=== PATIENT | female | born 1940 | race Caucasian/White ===

== ENCOUNTER 2018-11-12 00:30 | Inpatient (IN) | payer MEDICARE, OTHER ==
[~2018-11-12] VITALS: Ht 142.2 cm; Wt 61.5 kg
[2018-11-12] MEDS ORDERED: MAGNESIUM HYDROXIDE 2,400 MG/30 ML ORAL.SUSP. PO PRN (01:15)
[2018-11-12] MEDS ORDERED: MAG HYDROX/AL HYDROX/SIMETH 30 ML ORAL.SUSP PO PRN (01:15)
[2018-11-12] MEDS ORDERED: QUET25TA5 PO ×3 (01:28)
[2018-11-12] MEDS ORDERED: ACET325T9 PO (01:28)
[2018-11-12] MEDS ORDERED: PRAM0.255 PO (01:28)
[2018-11-12] MEDS ORDERED: DIVA500T17 PO (01:28)
[2018-11-12] MEDS ORDERED: PRIM250T28 PO (01:28)
[2018-11-12] MEDS ORDERED: QUEtiapine 25 MG TABLET. PO PRN (01:30)
[2018-11-12] MEDS ORDERED: ACETAMINOPHEN 325 MG TABLET PO PRN (01:45)
[2018-11-12] MEDS ORDERED: Influenza vaccine per PROTOCOL. MC PRN (02:45)
[2018-11-12 05:51] VITALS: BP 102/64
[2018-11-12 07:09] LABS: BASO % 0 % (0-3); EOS # 0.4 x10^3/uL (0.0-0.7); EOS % 4 % (0-3); HEMATOCRIT 38.6 % (36.0-47.0); HEMOGLOBIN 12.9 g/dL (12.0-15.5); LYMPH # 1.5 x10^3/uL (1.0-4.8); LYMPH % 18 % (24-48); MEAN CORPUSCULAR HEMOGLOBIN 32 pg (25-35); MEAN CORPUSCULAR HGB CONC 33 g/dL (31-37); MEAN CORPUSCULAR VOLUME 97 fL (79-100); MONO # 0.8 x10^3/uL (0.0-1.1); MONO % 9 % (0-9); NEUT # 5.7 x10^3uL (1.8-7.7); NEUT % 69 % (31-73); PLATELET COUNT 172 x10^3/uL (140-400); RED BLOOD COUNT 3.98 x10^6/uL (3.50-5.40); RED CELL DISTRIBUTION WIDTH 13.1 % (11.5-14.5); WHITE BLOOD COUNT 8.3 x10^3/uL (4.0-11.0)
[2018-11-12 07:11] LABS: ALBUMIN 2.8 g/dL (3.4-5.0); ALBUMIN/GLOBULIN RATIO 0.8 (1.0-1.7); CALCIUM 8.4 mg/dL (8.5-10.1); CREATININE 0.6 mg/dL (0.6-1.0); GFR 96.9; MAGNESIUM 2.2 mg/dL (1.8-2.4); TOTAL BILIRUBIN 0.4 mg/dL (0.2-1.0); TOTAL PROTEIN 6.5 g/dL (6.4-8.2)
[2018-11-12 07:19] LABS: VAL ACID 25 mcg/mL (50-100)
[2018-11-12] MEDS ORDERED: FLU VAX QS 2019-20 (36MOS+)/PF 0.5 ML SYRINGE. VAX IM ONE (09:00)
[2018-11-12] MEDS: DIVALPROEX ER 500 MG TAB.ER.24H PO SCH ×2 (09:05→19:39)
[2018-11-12] MEDS: QUEtiapine 25 MG TABLET. PO SCH ×2 (09:05→20:35)
[2018-11-12] MEDS: PRAMIPEXOLE 0.5 MG TABLET. PO SCH ×2 (09:05→19:39)
[2018-11-12 09:07] VITALS: BP 126/70
[2018-11-12] MEDS: PRIMIDONE 250 MG TABLET PO SCH ×2 (09:07→19:39)
[2018-11-12] MEDS: ACETAMINOPHEN 325 MG TABLET PO PRN ×2 (15:25→20:36)
[2018-11-12 16:30] VITALS: BP 130/75
[2018-11-12] MEDS: DIVALPROEX 125 MG CAP.SPRINK PO SCH (21:00)
[2018-11-12] MEDS ORDERED: DIVALPROEX 125 MG CAP.SPRINK PO SCH (21:00)
--- NOTE | 2018-11-12 22:13 | PDOC ---
Exam Note: Pancho Note: Please also refer to the separate dictated note~for this date of service dictated separately. Discussed the patient with Nursing staff reviewed the chart.~Reviewed interim history and current functioning. Reviewed vital signs,~Labs/ Radiology~and current medications noted below. Continue current treatment with the changes noted in the dictated addendum note Assessment: Vital Signs/I&O: Vital Signs Date Time Temp Pulse Resp B/P (MAP) Pulse Ox O2 Delivery O2 Flow Rate FiO2 11/12/18 16:30 98.4 82 18 130/75 (93) 96 I & O 11/11/18 11/11/18 11/12/18 15:00 23:00 07:00 Intake Total 0 ml Balance 0 ml Labs: Laboratory Tests Test 11/12/18 06:21 White Blood Count 8.3 x10^3/uL (4.0-11.0) Red Blood Count 3.98 x10^6/uL (3.50-5.40) Hemoglobin 12.9 g/dL (12.0-15.5) Hematocrit 38.6 % (36.0-47.0) Mean Corpuscular Volume 97 fL (79-100) Mean Corpuscular Hemoglobin 32 pg (25-35) Mean Corpuscular Hemoglobin Concent 33 g/dL (31-37) Red Cell Distribution Width 13.1 % (11.5-14.5) Platelet Count 172 x10^3/uL (140-400) Neutrophils (%) (Auto) 69 % (31-73) Lymphocytes (%) (Auto) 18 % (24-48) L Monocytes (%) (Auto) 9 % (0-9) Eosinophils (%) (Auto) 4 % (0-3) H Basophils (%) (Auto) 0 % (0-3) Neutrophils # (Auto) 5.7 x10^3uL (1.8-7.7) Lymphocytes # (Auto) 1.5 x10^3/uL (1.0-4.8) Monocytes # (Auto) 0.8 x10^3/uL (0.0-1.1) Eosinophils # (Auto) 0.4 x10^3/uL (0.0-0.7) Basophils # (Auto) 0.0 x10^3/uL (0.0-0.2) Sodium Level 141 mmol/L (136-145) Potassium Level 4.0 mmol/L (3.5-5.1) Chloride Level 105 mmol/L (98-107) Carbon Dioxide Level 28 mmol/L (21-32) Anion Gap 8 (6-14) Blood Urea Nitrogen 10 mg/dL (7-20) Creatinine 0.6 mg/dL (0.6-1.0) Estimated GFR (Cockcroft-Gault) 96.9 BUN/Creatinine Ratio 17 (6-20) Glucose Level 94 mg/dL (70-99) Calcium Level 8.4 mg/dL (8.5-10.1) L Magnesium Level 2.2 mg/dL (1.8-2.4) Iron Level 53 ug/dL (50-170) Total Iron Binding Capacity 198 ug/dL (250-450) L Iron Saturation 27 % (15-34) Total Bilirubin 0.4 mg/dL (0.2-1.0) Aspartate Amino Transferase (AST) 30 U/L (15-37) Alanine Aminotransferase (ALT) 23 U/L (14-59) Alkaline Phosphatase 55 U/L (46-116) Total Protein 6.5 g/dL (6.4-8.2) Albumin 2.8 g/dL (3.4-5.0) L Albumin/Globulin Ratio 0.8 (1.0-1.7) L Triglycerides Level 93 mg/dL (0-150) Cholesterol Level 184 mg/dL (0-200) LDL Cholesterol, Calculated 114 mg/dL (0-100) H VLDL Cholesterol, Calculated 18 mg/dL (0-40) Non-HDL Cholesterol Calculated 132 mg/dL (0-129) H HDL Cholesterol 52 mg/dL (40-60) Cholesterol/HDL Ratio 3.0 25-Hydroxy Vitamin D Total 12.4 ng/mL (30-100) L Valproic Acid Level 25 mcg/mL (50-100) L Valproic Acid Last Dose Date 11/10/18 Valproic Acid Last Dose Time 0900 Treponema pallidum Antibody Nonreactive (Nonreactive) Current Medications: Meds: Current Medications Medications (Trade) Dose Ordered Sig/Martin Route PRN Reason Start Time Stop Time Status Last Admin Dose Admin Acetaminophen (Tylenol) 650 mg PRN Q6HRS PRN PO PAIN / TEMP 10/1/19 01:15 11/12/18 20:36 Divalproex Sodium (Depakote Er) 500 mg BID PO 11/12/18 09:00 11/12/18 21:16 DC 11/12/18 09:05 Quetiapine Fumarate (SEROquel) 25 mg DAILY PO 11/12/18 09:00 11/12/18 09:05 Quetiapine Fumarate (SEROquel) 25 mg QHS PO 11/12/18 21:00 11/12/18 20:35 Pramipexole Dihydrochloride (miraPEX) 1 mg BID PO 11/12/18 09:00 11/12/18 19:39 Primidone (Mysoline) 250 mg BID PO 11/12/18 09:00 11/12/18 19:39 Influenza Virus Vaccine Quadrival (Afluria Quad 2019-20 (3yr Up) Syringe) 0.5 ml ONCE ONCE VAX IM 11/12/18 09:00 11/12/18 09:01 DC 11/12/18 09:07 Olanzapine (ZyPREXA ZYDIS) 2.5 mg PRN Q2HR PRN PO PSYCHOSIS 11/12/18 03:15 11/12/18 20:36 I have reviewed the current psychotropics carefully including drug interactions. Risk benefit ratio favors no change other than as noted in my dictated progress note. Diagnosis: Problems: (1) Anxiety disorder (2) Mild cognitive impairment (3) Major depressive disorder, recurrent episode NORIS ORTIZ MD Nov 12, 2018 22:12
[2018-11-13 00:07] LABS: HEMOGLOBIN A1C 5.7 % (4.8-5.6)
[2018-11-13 05:52] VITALS: BP 132/76
[2018-11-13] MEDS: QUEtiapine 25 MG TABLET. PO SCH ×2 (08:35→22:28)
[2018-11-13] MEDS: PRIMIDONE 250 MG TABLET PO SCH ×3 (08:35→22:28)
[2018-11-13] MEDS: PRAMIPEXOLE 0.5 MG TABLET. PO SCH ×3 (08:35→22:28)
[2018-11-13] MEDS: DIVALPROEX 125 MG CAP.SPRINK PO SCH ×3 (08:36→22:28)
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
[2018-11-13 16:04] VITALS: BP 131/78
--- NOTE | 2018-11-13 21:28 | PDOC ---
Exam Note: Pancho Note: Please also refer to the separate dictated note~for this date of service dictated separately.~Patient seen individually. Discussed the patient with Nursing staff reviewed the chart.~Reviewed interim history and current functioning. Reviewed vital signs,~Labs/ Radiology~and current medications noted below. Continue current treatment with the changes noted in the dictated addendum note Assessment: Vital Signs/I&O: Vital Signs Date Time Temp Pulse Resp B/P (MAP) Pulse Ox O2 Delivery O2 Flow Rate FiO2 11/13/18 16:04 98.6 70 16 131/78 (95) 95 I & O 11/12/18 11/12/18 11/13/18 14:59 22:59 06:59 Intake Total 600 ml 240 ml 0 ml Balance 600 ml 240 ml 0 ml Current Medications: I have reviewed the current psychotropics carefully including drug interactions. Risk benefit ratio favors no change other than as noted in my dictated progress note. Diagnosis: Problems: (1) Anxiety disorder (2) Mild cognitive impairment (3) Major depressive disorder, recurrent episode NORIS ORTIZ MD Nov 13, 2018 21:28
[2018-11-14 05:41] VITALS: BP 146/76
[2018-11-14 06:59] LABS: VAL ACID 25 mcg/mL (50-100)
[2018-11-14] MEDS: PRAMIPEXOLE 0.5 MG TABLET. PO SCH ×2 (07:36→20:28)
[2018-11-14] MEDS: QUEtiapine 25 MG TABLET. PO SCH ×2 (07:36→20:27)
[2018-11-14] MEDS: DIVALPROEX 125 MG CAP.SPRINK PO SCH ×2 (07:36→20:27)
[2018-11-14] MEDS: PRIMIDONE 250 MG TABLET PO SCH ×2 (07:36→20:28)
[2018-11-14] MEDS: CALCIUM CARB/VIT D3 500/200 TABLET PO SCH ×2 (07:38→17:09)
[2018-11-14] MEDS: SERTRALINE 50 MG TABLET. PO SCH (07:38)
[2018-11-14 16:55] VITALS: BP 136/74
--- NOTE | 2018-11-14 19:33 | PN ---
DATE: SUBJECTIVE: A 78-year-old female seen in Behavioral Unit. The patient was admitted with severe depression, refusing medications and care with increased agitation and behavioral outburst as well, very antagonistic towards the nurses. The patient has apparently recent surgery on her left foot, had a bunion surgery and is wrapped quite securely. The patient otherwise has basically allergy to ASPIRIN. Other medications were reviewed as well as with medical history of Parkinson disease, short-term memory deficit, agitation and some depression, little bit of paranoia ____ as well. PHYSICAL EXAMINATION: GENERAL: This is a white female, is noted somewhat agitated. The patient is alert, is noted at times seems to be back and forth between a very calm individual to one of a very aggressive and agitated individual toward the nursing staff. VITAL SIGNS: Blood pressure 130/76, respirations 18, pulse 95, afebrile. LUNGS: Diminished, but clear. CARDIOVASCULAR: Steady. EXTREMITIES: The patient's leg was wrapped well and can be undressed from her previous bunion, but she said it was feeling somewhat better. Otherwise, the patient had no other complaints except she did not [facility] it [facility], but seems to be pretty much discussed it with ____. She is somewhat low on her vitamin D level and should probably be increased on that. Her A1c was 5.7. IMPRESSION: Agitation, depression, MAD as well as post-bunionectomy. She also was noted to have some conjunctivitis of the left eye and she also has low vitamin D level, which will need to be adjusted as well. No doubt to help her with her healing process of her bunion. HILLARY ROPER MD DR: HOUSTON/carey JOB#: [id number] / [id number]
--- NOTE | 2018-11-14 21:47 | PDOC ---
Exam Note: Pancho Note: Please also refer to the separate dictated note~for this date of service dictated separately.~Patient seen individually. Discussed the patient with Nursing staff reviewed the chart.~Reviewed interim history and current functioning. Reviewed vital signs,~Labs/ Radiology~and current medications noted below. Continue current treatment with the changes noted in the dictated addendum note Assessment: Vital Signs/I&O: Vital Signs Date Time Temp Pulse Resp B/P (MAP) Pulse Ox O2 Delivery O2 Flow Rate FiO2 11/14/18 16:55 98.8 76 16 136/74 (94) 95 I & O 11/13/18 11/13/18 11/14/18 15:00 23:00 07:00 Intake Total 240 ml Balance 240 ml Labs: Laboratory Tests Test 11/14/18 06:17 Valproic Acid Level 25 mcg/mL (50-100) L Valproic Acid Last Dose Date 11/13/18 Valproic Acid Last Dose Time 2100 Current Medications: Meds: Current Medications Medications (Trade) Dose Ordered Sig/Martin Route PRN Reason Start Time Stop Time Status Last Admin Dose Admin Sertraline HCl (Zoloft) 50 mg DAILY PO 11/14/18 09:00 11/14/18 07:38 Calcium/Vitamin D (Oscal D 500mg/ 200uts) 1 tab BIDWMEALS PO 11/14/18 08:00 11/14/18 17:09 I have reviewed the current psychotropics carefully including drug interactions. Risk benefit ratio favors no change other than as noted in my dictated progress note. Diagnosis: Problems: (1) Anxiety disorder (2) Mild cognitive impairment (3) Major depressive disorder, recurrent episode NORIS ORTIZ MD Nov 14, 2018 21:47
[2018-11-15] MEDS: ACETAMINOPHEN 325 MG TABLET PO PRN (04:15)
[2018-11-15 06:02] VITALS: BP 101/61
[2018-11-15] MEDS: PRIMIDONE 250 MG TABLET PO SCH ×2 (08:26→20:43)
[2018-11-15] MEDS: CALCIUM CARB/VIT D3 500/200 TABLET PO SCH ×2 (08:26→16:08)
[2018-11-15] MEDS: PRAMIPEXOLE 0.5 MG TABLET. PO SCH ×2 (08:26→20:43)
[2018-11-15] MEDS: DIVALPROEX 125 MG CAP.SPRINK PO SCH ×2 (08:26→20:44)
[2018-11-15] MEDS: QUEtiapine 25 MG TABLET. PO SCH ×2 (08:27→20:44)
[2018-11-15] MEDS: SERTRALINE 50 MG TABLET. PO SCH (08:27)
[2018-11-15 16:21] VITALS: BP 138/65
--- NOTE | 2018-11-15 17:44 | EKG ---
[address] [address] Test Date: 2018-11-15 Test Time: 15:42:28 Pat Name: PAM AGUILERA Department: Room: [address] [place] [address] Gender: F Electro Mechanic: BASIL : 1940 Requested By: NORIS ORTIZ Order Number: [id number] Reading MD: Colten Sexton MD Measurements Intervals [place] Rate: 69 P: 39 IL: 142 QRS: 71 QRSD: 80 T: 24 QT: 382 QTc: 411 Interpretive Statements SINUS RHYTHM NON-SPECIFIC ST/T CHANGES CONSIDER ANTERIOR ISCHEMIA Electronically Signed On 11-26-2018 9:42:22 CDT by Colten Sexton MD
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
--- NOTE | 2018-11-15 20:23 | PN ---
DATE: 11/14/2018 PSYCHIATRIC PROGRESS NOTE This late entry 11/14/2018 covers elements not covered in my initial note. SUBJECTIVE: I met with the patient in the evening and staffed at a treatment team meeting with the entire team in the morning and the patient's , Hira attended the treatment team meeting. Reviewed her history at length including short-term memory deficits, worsening over the past couple of years, but her said her premorbid personality was quite irritable, anxious, worse since the memory has worsened. Reportedly, she has had some movement problems and we will consult Dr. Winter to see if she has Parkinson's. Sleeping 3-4 hours. Appetite 25-50%, refused medications at times agitated. REVIEW OF SYSTEMS: Ambulation impaired, in wheelchair. No CV, , pulmonary, eye system symptoms on review. MENTAL STATUS EXAM: Oriented to herself and situation. Speech has some latency, coherent. Abstraction fair, computation impaired, language function intact. Mood and affect is depressed. Short term memory is impaired. LABORATORY DATA: Reviewed. IMPRESSION: Major depressive disorder, recurrent, mild cognitive impairment; rule out psychotic features. Rest unchanged. PLAN: Continue current psychotropics. She remains on Zoloft 50 mg a day, Seroquel, Depakote. Repeat valproic acid level. Adjust further as clinically indicated. MAN Bola ORTIZ MD DR: JULIO CÉSAR/carey JOB#: [id number] / [id number]
--- NOTE | 2018-11-15 21:36 | PDOC ---
Exam Note: Pancho Note: Please also refer to the separate dictated note~for this date of service dictated separately.~Patient seen individually. Discussed the patient with Nursing staff reviewed the chart.~Reviewed interim history and current functioning. Reviewed vital signs,~Labs/ Radiology~and current medications noted below. Continue current treatment with the changes noted in the dictated addendum note Assessment: Vital Signs/I&O: Vital Signs Date Time Temp Pulse Resp B/P (MAP) Pulse Ox O2 Delivery O2 Flow Rate FiO2 11/15/18 16:21 98.5 65 16 138/65 (89) 98 I & O 11/14/18 11/14/18 11/15/18 15:00 23:00 07:00 Intake Total 720 ml 120 ml Balance 720 ml 120 ml Current Medications: I have reviewed the current psychotropics carefully including drug interactions. Risk benefit ratio favors no change other than as noted in my dictated progress note. Diagnosis: Problems: (1) Anxiety disorder (2) Mild cognitive impairment (3) Major depressive disorder, recurrent episode NORIS ORTIZ MD Nov 15, 2018 21:36
[2018-11-16 05:47] VITALS: BP 135/82
[2018-11-16] MEDS: PRAMIPEXOLE 0.5 MG TABLET. PO SCH ×2 (08:15→19:52)
[2018-11-16] MEDS: CALCIUM CARB/VIT D3 500/200 TABLET PO SCH ×2 (08:15→17:06)
[2018-11-16] MEDS: DIVALPROEX 125 MG CAP.SPRINK PO SCH ×2 (08:15→19:52)
[2018-11-16] MEDS: SERTRALINE 50 MG TABLET. PO SCH (08:16)
[2018-11-16] MEDS: PRIMIDONE 250 MG TABLET PO SCH ×2 (08:16→19:52)
[2018-11-16] MEDS: QUEtiapine 25 MG TABLET. PO SCH ×2 (08:16→19:52)
[2018-11-16 15:43] VITALS: BP 127/74
--- NOTE | 2018-11-16 20:12 | PN ---
DATE: 11/15/2018 PSYCHIATRIC PROGRESS NOTE This late entry of 11/15/2018 covers elements not covered in my initial note. SUBJECTIVE: I met with the patient in the evening. Per JUANCARLOS Quiros, the patient slept 5-3/4 hours previous night. She did well during the day, took her medications, and received p.r.n. Tylenol x 1. Her dressing to the lower extremity was changed. REVIEW OF SYSTEMS: Ambulation impaired, in wheelchair, and some tiredness. No CV, , pulmonary, eye, ENT system symptoms on review. MENTAL STATUS EXAM: Oriented to herself and situation. Speech has some latency, often responses monosyllabic. Abstraction fair, computation impaired, language function intact. Mood and affect withdrawn. Short-term memory is impaired, still depressed. No suicidal or homicidal ideation. LABORATORY DATA: Reviewed. IMPRESSION: Unchanged from initial note. PLAN: No change from initial note. NORIS ORTIZ MD DR: JULIO CÉSAR/carey JOB#: [id number] / [id number]
--- NOTE | 2018-11-16 21:52 | PDOC ---
Exam Note: Pancho Note: Please also refer to the separate dictated note~for this date of service dictated separately.~Patient seen individually. Discussed the patient with Nursing staff reviewed the chart.~Reviewed interim history and current functioning. Reviewed vital signs,~Labs/ Radiology~and current medications noted below. Continue current treatment with the changes noted in the dictated addendum note Assessment: Vital Signs/I&O: Vital Signs Date Time Temp Pulse Resp B/P (MAP) Pulse Ox O2 Delivery O2 Flow Rate FiO2 11/16/18 15:43 97.2 68 20 127/74 (91) 97 Room Air I & O 11/15/18 11/15/18 11/16/18 15:00 23:00 07:00 Intake Total 600 ml 360 ml Balance 600 ml 360 ml Current Medications: I have reviewed the current psychotropics carefully including drug interactions. Risk benefit ratio favors no change other than as noted in my dictated progress note. Diagnosis: Problems: (1) Anxiety disorder (2) Mild cognitive impairment (3) Major depressive disorder, recurrent episode NORIS ORTIZ MD Nov 16, 2018 21:52
[2018-11-17] MEDS: ACETAMINOPHEN 325 MG TABLET PO PRN (06:17)
[2018-11-17 06:22] VITALS: BP 124/69
[2018-11-17] MEDS: CALCIUM CARB/VIT D3 500/200 TABLET PO SCH ×3 (08:00→15:06)
[2018-11-17] MEDS: PRIMIDONE 250 MG TABLET PO SCH ×3 (08:13→19:58)
[2018-11-17] MEDS: PRAMIPEXOLE 0.5 MG TABLET. PO SCH ×3 (08:13→19:58)
[2018-11-17] MEDS: DIVALPROEX 125 MG CAP.SPRINK PO SCH ×3 (08:13→19:58)
[2018-11-17] MEDS: QUEtiapine 25 MG TABLET. PO SCH ×3 (08:13→19:58)
[2018-11-17] MEDS: SERTRALINE 50 MG TABLET. PO SCH ×2 (08:14→09:00)
[2018-11-17 09:47] LABS: BASO % 0 % (0-3); EOS # 0.4 x10^3/uL (0.0-0.7); EOS % 4 % (0-3); HEMATOCRIT 40.4 % (36.0-47.0); HEMOGLOBIN 13.4 g/dL (12.0-15.5); LYMPH # 2.3 x10^3/uL (1.0-4.8); LYMPH % 25 % (24-48); MEAN CORPUSCULAR HEMOGLOBIN 32 pg (25-35); MEAN CORPUSCULAR HGB CONC 33 g/dL (31-37); MEAN CORPUSCULAR VOLUME 98 fL (79-100); MONO # 0.9 x10^3/uL (0.0-1.1); MONO % 9 % (0-9); NEUT # 5.7 x10^3uL (1.8-7.7); NEUT % 61 % (31-73); PLATELET COUNT 205 x10^3/uL (140-400); RED BLOOD COUNT 4.13 x10^6/uL (3.50-5.40); RED CELL DISTRIBUTION WIDTH 13.4 % (11.5-14.5); WHITE BLOOD COUNT 9.3 x10^3/uL (4.0-11.0)
[2018-11-17 09:55] LABS: ALBUMIN 2.8 g/dL (3.4-5.0); ALBUMIN/GLOBULIN RATIO 0.6 (1.0-1.7); CREATININE 0.7 mg/dL (0.6-1.0); GFR 81.1; POTASSIUM 4.7 mmol/L (3.5-5.1); TOTAL BILIRUBIN 0.3 mg/dL (0.2-1.0); TOTAL PROTEIN 7.2 g/dL (6.4-8.2)
[2018-11-17] MEDS ORDERED: OLANZapine IM 10 MG VIAL. IM ONE ×2 (10:30→20:15)
--- NOTE | 2018-11-17 12:58 | CONS ---
DATE OF CONSULTATION: HISTORY OF PRESENT ILLNESS: This is a 78-year-old female on the [facility] who was admitted for multiple problems of depression, refusing medication and so forth as well as agitation and needed some psychiatric evaluation and intervention. The patient has recently had a bunion removal surgery at the end of 10/2018 and was in rehab for that as well. She has failed outpatient psychiatric therapy. Therefore, she has been admitted to the care of Dr. Gaines, psychiatrist for further evaluation and treatment there. PAST MEDICAL HISTORY: Includes respiratory symptoms. GI problems. Genitourinary disorder and the like. ALLERGIES: SHE HAS AN ALLERGY OR SENSITIVITY TO ASPIRIN. HOME MEDICATIONS: Were noted including Tylenol, Mysoline 250 mg, divalproex sodium 500 mg b.i.d., Seroquel 25 mg at bedtime and 25 mg of Seroquel during the day, 12.5 mg of Seroquel b.i.d. p.r.n. for anxiety and agitation, Mirapex 1 mg p.o. b.i.d. for Parkinson's disease. SOCIAL HISTORY: Denies smoking, alcohol or drug use. She is a full code. FAMILY HISTORY: Unremarkable. REVIEW OF SYSTEMS: The patient outside of some pain in her left foot from the previous bunion surgery, otherwise, is doing well there. PHYSICAL EXAMINATION: GENERAL: This is a pleasant white female, pretty much sedated. She is in her wheelchair. VITAL SIGNS: Blood pressure 124/69, respiratory rate 18, pulse 71, afebrile. HEENT: The patient's head was atraumatic, normocephalic. Eyes: PERRLA without jaundice. Mouth and throat: Normal. NECK: Supple. LUNGS: Clear. CARDIOVASCULAR: Regular sinus rhythm. ABDOMEN: Soft, nontender, no rebound or guarding. Positive bowel sounds, no hepatosplenomegaly. EXTREMITIES: No clubbing, cyanosis or edema. NEUROLOGIC: The patient is alert, seems to be fairly appropriate in dress and content of speech, although somewhat very easily agitated and verbally aggressive towards some of the nurses. Otherwise, the patient has a left lower leg in a cast from a previous bunion surgery by Dr. Palacio, otherwise, will continue to be monitored carefully on that. LABORATORY DATA: Did show a low vitamin D. She is placed on vitamin D supplement 1000 units daily and she also has severe protein malnutrition. Her A1c was good at 5.7. Otherwise, she will be continued to be monitored carefully and we will follow along with you. IMPRESSION: Therefore, depression, agitation, impulse control, mild cognitive impairment, post-bunion surgery, vitamin D deficiency, severe protein malnutrition, hyperglycemia. PLAN: As above and we will adjust her medications, give her additional vitamin D and physical and occupational therapy along with psychiatric evaluation as well. Thank you for this consultation. HILLARY ROPER MD DR: HOUSTON/carey JOB#: [id number] / [id number]
[2018-11-17 16:19] VITALS: BP 133/86
[2018-11-17] MEDS: OLANZapine 5 MG TABLET PO SCH (20:32)
--- NOTE | 2018-11-18 04:37 | PN ---
DATE: 11/17/2018 SUBJECTIVE: The patient was seen today, met with the staff, chart reviewed. Staff reports no major behavior problems. The patient apparently had episodes where she gets increasingly agitated, angry and threatening to leave the hospital. The patient was given Zyprexa 5 mg p.o., but the patient refused and it was given as an IM. Staff reports the patient is noncompliant with the treatment, refusing her medications and increasingly her behavior has gotten worse. OBSERVATION: VITAL SIGNS: Temperature 97.4, blood pressure 124/69, pulse 71, respiration 18, O2 sat 92%. GENERAL: Slept about 7 hours last night. The patient's appetite is fair. Staff denies of any falls. MEDICATIONS: The patient's current medications include olanzapine 5 mg b.i.d. p.o. to be given IM if she refuses, Depakote 500 mg b.i.d., Seroquel 25 mg at night, which she has been refusing to take. The patient is also on primidone 250 mg b.i.d. The patient is also on Seroquel 25 mg daily, which she is refusing. LABORATORY DATA: The patient's lab reviewed. The patient's BUN was 21. Hemoglobin A1c 5.7 and abnormal lipid profile. ASSESSMENT: Major depressive disorder, recurrent, without psychotic feature; mild cognitive impairment; and generalized anxiety disorder. PLAN: To continue with the treatment. DEAN FREY MD DR: HELDER/carey JOB#: [id number] / [id number]
[2018-11-18 05:33] VITALS: BP 111/70
[2018-11-18 07:23] VITALS: BP 172/92
--- NOTE | 2018-11-18 07:24 | PN ---
DATE: SUBJECTIVE: A 78-year-old female. Patient basically without complaint, but on review of her labs, the patient has been showing signs of vitamin D deficiency, which her labs confirm. The patient is also being recovering from an operation for a bunion, doing well there. The patient will be placed on vitamin D. OBJECTIVE: VITAL SIGNS: Blood pressure 133/86, respiratory rate 18, pulse 92, afebrile. GENERAL: The patient is alert, baseline mental status. LUNGS: Diminished, but clear. CARDIOVASCULAR: Stable. The patient's foot seems to be healing well. Put her on Os-Aditya with vitamin D for calcium and vitamin D input. HILLARY ROPER MD DR: HOUSTON/carey JOB#: [id number] / [id number]
[2018-11-18] MEDS: PRIMIDONE 250 MG TABLET PO SCH ×2 (07:54→20:36)
[2018-11-18] MEDS: OLANZapine 5 MG TABLET PO SCH ×2 (07:54→20:36)
[2018-11-18] MEDS: DIVALPROEX 125 MG CAP.SPRINK PO SCH ×2 (07:54→20:36)
[2018-11-18] MEDS: CALCIUM CARB/VIT D3 500/200 TABLET PO SCH ×3 (07:54→17:03)
[2018-11-18] MEDS: QUEtiapine 25 MG TABLET. PO SCH ×2 (07:54→20:36)
[2018-11-18] MEDS: PRAMIPEXOLE 0.5 MG TABLET. PO SCH ×2 (07:54→20:36)
[2018-11-18] MEDS: SERTRALINE 50 MG TABLET. PO SCH (07:55)
[2018-11-18 16:07] VITALS: BP 138/81
[2018-11-18] MEDS: ACETAMINOPHEN 325 MG TABLET PO PRN (20:16)
[2018-11-19 05:28] VITALS: BP 111/69
[2018-11-19] MEDS: SERTRALINE 50 MG TABLET. PO SCH (07:51)
[2018-11-19] MEDS: PRIMIDONE 250 MG TABLET PO SCH ×2 (07:51→20:18)
[2018-11-19] MEDS: PRAMIPEXOLE 0.5 MG TABLET. PO SCH ×2 (07:51→20:18)
[2018-11-19] MEDS: QUEtiapine 25 MG TABLET. PO SCH ×2 (07:51→22:20)
[2018-11-19] MEDS: CALCIUM CARB/VIT D3 500/200 TABLET PO SCH ×2 (07:51→17:15)
[2018-11-19] MEDS: OLANZapine 5 MG TABLET PO SCH ×2 (07:52→20:17)
[2018-11-19] MEDS: DIVALPROEX 125 MG CAP.SPRINK PO SCH ×2 (07:52→20:18)
--- NOTE | 2018-11-19 14:25 | PN ---
DATE: 11/18/2018 SUBJECTIVE: The patient was seen today, met with the staff, chart reviewed. Staff report that the patient ____ against the wall, but no visible injuries. The patient is on neuro checks at this time. The patient continues to have problems, resistive to care. Staff reports some improvement over the past 2 days. OBSERVATION: VITAL SIGNS: Temperature 98.5, blood pressure 111/70, pulse 66, respirations 20, O2 sat 92%. Slept about 8 hours last night. LABORATORY DATA: The patient's lab reviewed. The patient is not having any major physical complaints. MEDICATIONS: The patient's current medications include olanzapine 5 mg b.i.d. p.o., Depakote 500 mg b.i.d., Seroquel 25 mg at night. The patient has been refusing most of the medications and she was given 5 mg of Zyprexa last night. The patient is not having any side effects. ASSESSMENT: 1. Major depressive disorder, recurrent, without psychotic features. 2. Mild cognitive disorder. 3. Generalized anxiety disorder. PLAN: To continue with the treatment. Continue to monitor her behavior, the vitals because of the recent fall. The patient apparently not having any major physical complaints. Denies of any pain. DEAN FREY MD DR: HELDER/carey JOB#: [id number] / [id number]
[2018-11-19 16:21] VITALS: BP 136/88
[2018-11-19] MEDS: ACETAMINOPHEN 325 MG TABLET PO PRN (20:18)
--- NOTE | 2018-11-19 21:48 | PDOC ---
Exam Note: Pancho Note: Please also refer to the separate dictated note~for this date of service dictated separately.~Patient seen individually. Discussed the patient with Nursing staff reviewed the chart.~Reviewed interim history and current functioning. Reviewed vital signs,~Labs/ Radiology~and current medications noted below. Continue current treatment with the changes noted in the dictated addendum note Assessment: Vital Signs/I&O: Vital Signs Date Time Temp Pulse Resp B/P (MAP) Pulse Ox O2 Delivery O2 Flow Rate FiO2 11/19/18 16:21 97.3 69 16 136/88 (104) 96 11/19/18 05:28 Room Air I & O 11/18/18 11/18/18 11/19/18 15:00 23:00 07:00 Intake Total 540 ml 480 ml Balance 540 ml 480 ml Current Medications: I have reviewed the current psychotropics carefully including drug interactions. Risk benefit ratio favors no change other than as noted in my dictated progress note. Diagnosis: Problems: (1) Anxiety disorder (2) Mild cognitive impairment (3) Major depressive disorder, recurrent episode NORIS ORTIZ MD Nov 19, 2018 21:48
--- NOTE | 2018-11-20 01:32 | PN ---
DATE: 11/16/2018 PSYCHIATRIC PROGRESS NOTE This late entry, 11/16, covers elements not covered in my initial note. SUBJECTIVE: I met with the patient in the morning. The patient slept 7-3/4 hours previous night. Per Mercedes, patient remains confused, had a bath yesterday, not aggressive. REVIEW OF SYSTEMS: No CV, , pulmonary, eye, ENT system symptoms on review. Gait unsteady in wheelchair, nonweightbearing left foot. Reliability poor. MENTAL STATUS EXAMINATION: Oriented to herself. Insight, judgment, recent and remote memory, attention, concentration, fund of knowledge poor, consistent with her diagnosis mentioned in my initial note. PLAN: No change from initial note. MAN Bola ORTIZ MD DR: JULIO CÉSAR/carey JOB#: [id number] / [id number]
[2018-11-20 05:42] VITALS: BP 133/78
[2018-11-20] MEDS: DIVALPROEX 125 MG CAP.SPRINK PO SCH ×2 (08:43→20:02)
[2018-11-20] MEDS: OLANZapine 5 MG TABLET PO SCH (08:43)
[2018-11-20] MEDS: QUEtiapine 25 MG TABLET. PO SCH ×2 (08:44→20:20)
[2018-11-20] MEDS: CALCIUM CARB/VIT D3 500/200 TABLET PO SCH ×2 (08:44→16:31)
[2018-11-20] MEDS: PRAMIPEXOLE 0.5 MG TABLET. PO SCH ×2 (08:44→20:01)
[2018-11-20] MEDS: PRIMIDONE 250 MG TABLET PO SCH ×2 (08:44→20:02)
[2018-11-20] MEDS: SERTRALINE 50 MG TABLET. PO SCH (08:46)
[2018-11-20 16:18] VITALS: BP 155/83
--- NOTE | 2018-11-20 21:53 | PDOC ---
Exam Note: Pancho Note: Please also refer to the separate dictated note~for this date of service dictated separately.~Patient seen individually. Discussed the patient with Nursing staff reviewed the chart.~Reviewed interim history and current functioning. Reviewed vital signs,~Labs/ Radiology~and current medications noted below. Continue current treatment with the changes noted in the dictated addendum note Assessment: Vital Signs/I&O: Vital Signs Date Time Temp Pulse Resp B/P (MAP) Pulse Ox O2 Delivery O2 Flow Rate FiO2 11/20/18 16:18 98.2 72 18 155/83 (107) 95 11/19/18 05:28 Room Air I & O 11/19/18 11/19/18 11/20/18 15:00 23:00 07:00 Intake Total 600 ml 440 ml Balance 600 ml 440 ml Current Medications: Meds: Current Medications Medications (Trade) Dose Ordered Sig/Martin Route PRN Reason Start Time Stop Time Status Last Admin Dose Admin Sertraline HCl (Zoloft) 75 mg DAILY PO 11/20/18 09:00 11/20/18 08:46 Divalproex Sodium (Depakote Sprinkles) 750 mg BID PO 11/20/18 21:00 11/20/18 20:02 I have reviewed the current psychotropics carefully including drug interactions. Risk benefit ratio favors no change other than as noted in my dictated progress note. Diagnosis: Problems: (1) Anxiety disorder (2) Mild cognitive impairment (3) Major depressive disorder, recurrent episode NORIS ORTIZ MD Nov 20, 2018 21:53
--- NOTE | 2018-11-21 02:00 | PN ---
DATE: 11/19/2018 PSYCHIATRIC PROGRESS NOTE This late entry 11/19/2018 covers elements not covered in my initial note. SUBJECTIVE: I met with the patient evening of 11/19/2018. Reviewed information with Dr. Serrano, who covered for me over the past couple of days. The patient slept 7-3/4 hours previous night. She refused a.m. medications, took them later in pudding. REVIEW OF SYSTEMS: Ambulation impaired, in wheelchair. No CV, , pulmonary, eye system symptoms on review. Does admit to being tired. MENTAL STATUS EXAMINATION: Oriented to herself, at times situation. Speech moderate latency, low in rate and rhythm, low in volume, often responses monosyllabic. Abstraction fair, computation impaired, language function intact, attention span short. Short term memory is impaired. Mood and affect somewhat withdrawn, depressed. LABORATORY DATA: Reviewed. IMPRESSION: Unchanged from initial note. PLAN: Continue current psychotropics and after she has been on Zoloft 50 mg a day for 3 days, we will increase to 75 mg a day. Rest unchanged. MAN Bola ORTIZ MD DR: JULIO CÉSAR/carey JOB#: [id number] / [id number]
[2018-11-21 06:25] VITALS: BP 133/74
[2018-11-21] MEDS: SERTRALINE 50 MG TABLET. PO SCH (08:51)
[2018-11-21] MEDS: PRIMIDONE 250 MG TABLET PO SCH ×2 (08:51→20:03)
[2018-11-21] MEDS: PRAMIPEXOLE 0.5 MG TABLET. PO SCH ×2 (08:51→20:03)
[2018-11-21] MEDS: CALCIUM CARB/VIT D3 500/200 TABLET PO SCH ×2 (08:51→16:43)
[2018-11-21] MEDS: DIVALPROEX 125 MG CAP.SPRINK PO SCH ×2 (08:51→20:02)
[2018-11-21] MEDS: QUEtiapine 25 MG TABLET. PO SCH ×2 (08:51→20:03)
[2018-11-21 17:40] VITALS: BP 152/86
--- NOTE | 2018-11-21 21:54 | PDOC ---
Exam Note: Pancho Note: Please also refer to the separate dictated note~for this date of service dictated separately.~Patient seen individually. Discussed the patient with Nursing staff reviewed the chart.~Reviewed interim history and current functioning. Reviewed vital signs,~Labs/ Radiology~and current medications noted below. Continue current treatment with the changes noted in the dictated addendum note Assessment: Vital Signs/I&O: Vital Signs Date Time Temp Pulse Resp B/P (MAP) Pulse Ox O2 Delivery O2 Flow Rate FiO2 11/21/18 17:40 97.6 84 16 152/86 (108) 95 Room Air I & O 11/20/18 11/20/18 11/21/18 15:00 23:00 07:00 Intake Total 720 ml 360 ml Balance 720 ml 360 ml Current Medications: I have reviewed the current psychotropics carefully including drug interactions. Risk benefit ratio favors no change other than as noted in my dictated progress note. Diagnosis: Problems: (1) Anxiety disorder (2) Mild cognitive impairment (3) Major depressive disorder, recurrent episode NORIS ORITZ MD Nov 21, 2018 21:54
[2018-11-22 05:33] VITALS: BP 145/56
[2018-11-22] MEDS: CALCIUM CARB/VIT D3 500/200 TABLET PO SCH ×2 (08:00→17:35)
[2018-11-22] MEDS: DIVALPROEX 125 MG CAP.SPRINK PO SCH ×2 (08:06→19:43)
[2018-11-22] MEDS: PRAMIPEXOLE 0.5 MG TABLET. PO SCH ×2 (08:06→19:43)
[2018-11-22] MEDS: QUEtiapine 25 MG TABLET. PO SCH ×2 (08:07→19:43)
[2018-11-22] MEDS: SERTRALINE 50 MG TABLET. PO SCH (08:07)
[2018-11-22] MEDS: PRIMIDONE 250 MG TABLET PO SCH ×2 (08:07→19:43)
[2018-11-22 15:46] VITALS: BP 131/74
--- NOTE | 2018-11-22 21:48 | PDOC ---
Exam Note: Pancho Note: Please also refer to the separate dictated note~for this date of service dictated separately.~Patient seen individually. Discussed the patient with Nursing staff reviewed the chart.~Reviewed interim history and current functioning. Reviewed vital signs,~Labs/ Radiology~and current medications noted below. Continue current treatment with the changes noted in the dictated addendum note Assessment: Vital Signs/I&O: Vital Signs Date Time Temp Pulse Resp B/P (MAP) Pulse Ox O2 Delivery O2 Flow Rate FiO2 11/22/18 15:46 98.0 59 16 131/74 (93) 96 Room Air I & O 11/21/18 11/21/18 11/22/18 15:00 23:00 07:00 Intake Total 720 ml 240 ml Balance 720 ml 240 ml Current Medications: I have reviewed the current psychotropics carefully including drug interactions. Risk benefit ratio favors no change other than as noted in my dictated progress note. Diagnosis: Problems: (1) Anxiety disorder (2) Mild cognitive impairment (3) Major depressive disorder, recurrent episode (4) Severe protein-calorie malnutrition (5) Vitamin D deficiency NORIS ORTIZ MD Nov 22, 2018 21:48
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
--- NOTE | 2018-11-23 01:40 | PN ---
DATE: 11/20/2018 PSYCHIATRIC PROGRESS NOTE This late entry 11/20/2018 covers the elements not covered in my initial note. SUBJECTIVE: I met with the patient in the evening of 11/20/2018. According to JUANCARLOS Sampson, the patient slept 7-3/4 hours previous night, refused the bedtime medications, had to be syringed. Valproic acid level was 25 on 11/14/2018 on 500 b.i.d. Depakote and we will increase to 750 b.i.d. Check CBC, CMP, and valproic acid level in 3 days. She remains intermittently sedated and we will go ahead and stop the Zyprexa b.i.d. REVIEW OF SYSTEMS: Ambulation impaired, in wheelchair. No CV, , pulmonary, eye, ENT system symptoms on review. Reliability poor. MENTAL STATUS EXAM: Oriented to herself and situation. Speech has moderate latency, often responses monosyllabic. Abstraction fair, computation impaired, language function intact. Mood and affect somewhat withdrawn. LABORATORY DATA: Reviewed. IMPRESSION: Major neurocognitive disorder, Alzheimer vascular with delusion, depression, behavioral disturbance. Rest unchanged. PLAN: Adjust the Depakote as above. Stop the Zyprexa. Check labs on the Depakote. Rest unchanged for now. NORIS ORTIZ MD DR: JULIO CÉSAR/carey JOB#: [id number] / [id number]
[2018-11-23 06:31] VITALS: BP 147/75
[2018-11-23] MEDS: CALCIUM CARB/VIT D3 500/200 TABLET PO SCH ×3 (08:04→16:33)
[2018-11-23] MEDS: DIVALPROEX 125 MG CAP.SPRINK PO SCH ×2 (08:04→19:53)
[2018-11-23] MEDS: SERTRALINE 50 MG TABLET. PO SCH (08:05)
[2018-11-23] MEDS: QUEtiapine 25 MG TABLET. PO SCH ×2 (08:05→19:54)
[2018-11-23] MEDS: PRAMIPEXOLE 0.5 MG TABLET. PO SCH ×2 (08:05→19:54)
[2018-11-23] MEDS: PRIMIDONE 250 MG TABLET PO SCH ×2 (08:05→19:54)
[2018-11-23 16:09] VITALS: BP 111/73
--- NOTE | 2018-11-23 17:36 | PN ---
DATE: 11/22/2018 PSYCHIATRIC PROGRESS NOTE This note covers elements not covered in my initial note 11/22/2018. SUBJECTIVE: I met with the patient in the evening. Per JUANCARLOS Lipscomb, the patient slept 9-3/4 hours previous night. Yesterday was a rough day for her, but she was quite oversedated in the evening, was not given her medications as a consequence of this to avoid oversedation, had a large bowel movement today, much more pleasant, cooperative today. REVIEW OF SYSTEMS: Ambulation impaired in wheelchair. No CV, , pulmonary, eye system symptoms on review. MENTAL STATUS EXAM: Oriented to herself and situation. Speech moderate latency, often responses monosyllabic. Abstraction fair, computation impaired, language function intact. Mood and affect somewhat anxious, labile. LABORATORY DATA: Reviewed. IMPRESSION: Unchanged from initial note. PLAN: Check labs for the Depakote on 11/24/2018, continued Depakote 750 b.i.d., Seroquel 25 mg a.m. and at bedtime plus 12.5 b.i.d. p.r.n., Zoloft 50 mg a day, Zyprexa p.r.n. MAN Bola ORTIZ MD DR: JULIO CÉSAR/carey JOB#: [id number] / [id number]
--- NOTE | 2018-11-23 22:59 | PDOC ---
Exam Note: Pancho Note: Please also refer to the separate dictated note~for this date of service dictated separately.~Patient seen individually. Discussed the patient with Nursing staff reviewed the chart.~Reviewed interim history and current functioning. Reviewed vital signs,~Labs/ Radiology~and current medications noted below. Continue current treatment with the changes noted in the dictated addendum note Assessment: Vital Signs/I&O: Vital Signs Date Time Temp Pulse Resp B/P (MAP) Pulse Ox O2 Delivery O2 Flow Rate FiO2 11/23/18 16:09 97.6 62 16 111/73 (86) 94 Room Air I & O 11/22/18 11/22/18 11/23/18 14:59 22:59 06:59 Intake Total 480 ml 240 ml Balance 480 ml 240 ml Current Medications: I have reviewed the current psychotropics carefully including drug interactions. Risk benefit ratio favors no change other than as noted in my dictated progress note. Diagnosis: Problems: (1) Anxiety disorder (2) Mild cognitive impairment (3) Major depressive disorder, recurrent episode NORIS ORTIZ MD Nov 23, 2018 22:59
[2018-11-24 05:32] VITALS: BP 104/63
[2018-11-24 07:29] LABS: BASO % 1 % (0-3); EOS # 0.3 x10^3/uL (0.0-0.7); EOS % 5 % (0-3); HEMATOCRIT 40.1 % (36.0-47.0); HEMOGLOBIN 13.2 g/dL (12.0-15.5); LYMPH # 2.1 x10^3/uL (1.0-4.8); LYMPH % 32 % (24-48); MEAN CORPUSCULAR HEMOGLOBIN 32 pg (25-35); MEAN CORPUSCULAR HGB CONC 33 g/dL (31-37); MEAN CORPUSCULAR VOLUME 98 fL (79-100); MONO # 0.6 x10^3/uL (0.0-1.1); MONO % 9 % (0-9); NEUT # 3.6 x10^3uL (1.8-7.7); NEUT % 54 % (31-73); PLATELET COUNT 220 x10^3/uL (140-400); RED BLOOD COUNT 4.07 x10^6/uL (3.50-5.40); RED CELL DISTRIBUTION WIDTH 13.1 % (11.5-14.5); WHITE BLOOD COUNT 6.7 x10^3/uL (4.0-11.0)
[2018-11-24 07:39] LABS: ALBUMIN 2.7 g/dL (3.4-5.0); ALBUMIN/GLOBULIN RATIO 0.6 (1.0-1.7); ALK PHOS 73 U/L (46-116); ALT (SGPT) 23 U/L (14-59); ANION GAP 7 (6-14); AST (SGOT) 27 U/L (15-37); BLOOD UREA NITROGEN 20 mg/dL (7-20); BUN/CREATININE RATIO 29 (6-20); CALCIUM 8.7 mg/dL (8.5-10.1); CARBON DIOXIDE 32 mmol/L (21-32); CHLORIDE 108 mmol/L (98-107); CREATININE 0.7 mg/dL (0.6-1.0); GFR 81.1; GLUCOSE 95 mg/dL (70-99); SODIUM 147 mmol/L (136-145); TOTAL BILIRUBIN 0.2 mg/dL (0.2-1.0); TOTAL PROTEIN 7.3 g/dL (6.4-8.2)
[2018-11-24 07:51] LABS: VAL ACID 72 mcg/mL (50-100)
[2018-11-24] MEDS: CALCIUM CARB/VIT D3 500/200 TABLET PO SCH ×2 (08:12→17:39)
[2018-11-24] MEDS: QUEtiapine 25 MG TABLET. PO SCH ×2 (08:12→20:31)
[2018-11-24] MEDS: PRIMIDONE 250 MG TABLET PO SCH ×2 (08:12→20:31)
[2018-11-24] MEDS: SERTRALINE 50 MG TABLET. PO SCH (08:13)
[2018-11-24] MEDS: DIVALPROEX 125 MG CAP.SPRINK PO SCH ×2 (08:14→20:31)
[2018-11-24] MEDS: PRAMIPEXOLE 0.5 MG TABLET. PO SCH ×2 (08:14→20:31)
[2018-11-24 16:15] VITALS: BP 139/73
[2018-11-25 05:34] VITALS: BP 106/63
--- NOTE | 2018-11-25 06:53 | PN ---
DATE: 11/23/2018 PSYCHIATRIC PROGRESS NOTE This late entry, 11/23/2018, covers the elements not covered in my initial note. SUBJECTIVE: I met with the patient in the morning. The patient slept 6-1/2 hours previous night. She remains somewhat withdrawn, anxious, irritable at times, and takes the medications crushed. REVIEW OF SYSTEMS: Ambulation impaired, in wheelchair. No CV, , pulmonary, eye, ENT system symptoms on review. MENTAL STATUS EXAM: Oriented to herself. Speech is low in rate and rhythm, low in volume, often responses monosyllabic. Insight, judgment, recent memory is impaired, remote is better. Language function intact. Attention span short. Mood and affect less labile, somewhat withdrawn. LABORATORY DATA: Reviewed. IMPRESSION: Major neurocognitive disorder, Alzheimer, vascular with delusion, depression, behavioral disturbance. Rest unchanged. PLAN: Continue psychotropics from initial note. Depakote 750 b.i.d., Seroquel 125 mg a.m. and at bedtime and 25 mg noon was added the day before, Zoloft 75 mg a day, Zyprexa p.r.n. Dr. Collazo will cover for me over the next few days during my vacation. NORIS ORTIZ MD DR: JULIO CÉSAR/carey JOB#: [id number] / [id number]
[2018-11-25] MEDS: SERTRALINE 50 MG TABLET. PO SCH (08:42)
[2018-11-25] MEDS: PRIMIDONE 250 MG TABLET PO SCH ×2 (08:43→20:04)
[2018-11-25] MEDS: CALCIUM CARB/VIT D3 500/200 TABLET PO SCH ×2 (08:43→16:18)
[2018-11-25] MEDS: QUEtiapine 25 MG TABLET. PO SCH ×2 (08:43→20:04)
[2018-11-25] MEDS: DIVALPROEX 125 MG CAP.SPRINK PO SCH ×2 (08:44→20:05)
[2018-11-25] MEDS: PRAMIPEXOLE 0.5 MG TABLET. PO SCH ×2 (08:44→20:04)
--- NOTE | 2018-11-25 14:04 | PN ---
DATE: 11/24/2018 SUBJECTIVE: The patient was seen today, met with the staff, chart reviewed. Staff reports continued mood swings which are fluctuating, also indifferent. The patient also resistive to care. The patient also ____ wheelchair. OBSERVATION: VITAL SIGNS: Temperature 97.4, blood pressure 104/63, pulse 76, respirations 20, O2 sat 95%. GENERAL: Slept about 6 hours last night. Appetite fair. MEDICATIONS: Reviewed. Currently on Depakote 750 mg b.i.d., Seroquel 25 mg daily and at bedtime, also 12.5 mg b.i.d. p.r.n. She is also on Zoloft 50 mg daily. The patient is not having any side effects. LABORATORY DATA: The patient's lab reviewed, no significant change from the previous levels. ASSESSMENT: 1. Major neurocognitive disorder, mild to moderate. 2. Major depressive disorder, recurrent, without psychotic features. 3. Generalized anxiety disorder. PLAN: To continue with the current treatment plan. DEAN FREY MD DR: HELDER/carey JOB#: [id number] / [id number]
[2018-11-25 16:37] VITALS: BP 129/71
--- NOTE | 2018-11-26 01:57 | PN ---
DATE: 11/25/2018 SUBJECTIVE: The patient was seen today, met with the staff, chart reviewed. Staff reports no major change in her behaviors. Yesterday, she became aggressive and she was given Zyprexa Zydis as a p.r.n. and today she has not presented with any major behavior problems. OBSERVATION: VITAL SIGNS: Temperature 97.4, blood pressure 106/63, pulse 75, respirations 18, O2 sat 96%. GENERAL: Slept about 8 hours last night. The patient's appetite improved. The patient currently weighs 135.8 pounds. MEDICATIONS: The patient's current medications include Depakote 750 mg b.i.d. p.o., Seroquel 25 mg daily and 25 mg at night. She is also on Seroquel 12.5 mg b.i.d. p.o. p.r.n. The patient is also on Zoloft 50 mg daily. The patient denies of any side effects. LABORATORY DATA: The patient's lab reviewed. ASSESSMENT: 1. Major neurocognitive disorder, mild to moderate. 2. Major depressive disorder, recurrent, without psychotic features. 3. Generalized anxiety disorder. PLAN: To continue with the treatment. DEAN FREY MD DR: HELDER/carey JOB#: [id number] / [id number]
[2018-11-26 06:09] VITALS: BP 122/77
[2018-11-26] MEDS: SERTRALINE 50 MG TABLET. PO SCH (08:37)
[2018-11-26] MEDS: PRIMIDONE 250 MG TABLET PO SCH ×2 (08:37→21:05)
[2018-11-26] MEDS: PRAMIPEXOLE 0.5 MG TABLET. PO SCH ×2 (08:37→21:05)
[2018-11-26] MEDS: DIVALPROEX 125 MG CAP.SPRINK PO SCH ×2 (08:37→21:05)
[2018-11-26] MEDS: QUEtiapine 25 MG TABLET. PO SCH ×2 (08:37→21:05)
[2018-11-26] MEDS: CALCIUM CARB/VIT D3 500/200 TABLET PO SCH ×2 (08:37→17:00)
[2018-11-26 16:09] VITALS: BP 133/85
[2018-11-26 17:12] LABS: BASO # 0.1 x10^3/uL (0.0-0.2); BASO % 1 % (0-3); EOS # 0.1 x10^3/uL (0.0-0.7); EOS % 1 % (0-3); HEMATOCRIT 46.6 % (36.0-47.0); HEMOGLOBIN 15.1 g/dL (12.0-15.5); LYMPH # 1.8 x10^3/uL (1.0-4.8); LYMPH % 19 % (24-48); MEAN CORPUSCULAR HEMOGLOBIN 32 pg (25-35); MEAN CORPUSCULAR HGB CONC 32 g/dL (31-37); MEAN CORPUSCULAR VOLUME 99 fL (79-100); MONO # 0.8 x10^3/uL (0.0-1.1); MONO % 9 % (0-9); NEUT # 6.7 x10^3uL (1.8-7.7); NEUT % 71 % (31-73); PLATELET COUNT 218 x10^3/uL (140-400); RED BLOOD COUNT 4.72 x10^6/uL (3.50-5.40); RED CELL DISTRIBUTION WIDTH 13.5 % (11.5-14.5); WHITE BLOOD COUNT 9.5 x10^3/uL (4.0-11.0)
[2018-11-26 17:23] LABS: ALBUMIN/GLOBULIN RATIO 0.6 (1.0-1.7); CALCIUM 9.3 mg/dL (8.5-10.1); CREATININE 0.8 mg/dL (0.6-1.0); GFR 69.6; POTASSIUM 4.4 mmol/L (3.5-5.1); TOTAL BILIRUBIN 0.2 mg/dL (0.2-1.0); TOTAL PROTEIN 8.2 g/dL (6.4-8.2)
--- NOTE | 2018-11-27 03:38 | PN ---
DATE: 11/26/2018 SUBJECTIVE: The patient was seen today, met with the staff, chart reviewed. The patient continues to be agitated, also withdrawn, increased anxiety. The patient continues to be on wheelchair. Staff reports no other behavior problems today. OBSERVATION: VITAL SIGNS: Temperature 97.7, blood pressure 122/77, pulse 66, respiration 20, O2 sat 91%. Slept about 6 ____. DICTATION ENDS HERE. DEAN FREY MD DR: HELDER/carey JOB#: [id number] / [id number]
--- NOTE | 2018-11-27 03:44 | PN ---
DATE: 11/26/2018 SUBJECTIVE: The patient was seen today, met with the staff, chart reviewed. The patient is currently on wheelchair, withdrawn, anxious and also agitated easily. The patient has not shown any aggressive behaviors towards the staff. OBSERVATION: VITAL SIGNS: Temperature 97.7, blood pressure 122/77, pulse 66, respirations 20, O2 sat 91%. GENERAL: Slept about 6 hours last night. The patient's appetite is fair. MEDICATIONS: Reviewed. Currently on Depakote 750 mg b.i.d. p.o., Seroquel 25 mg daily and 25 mg at night. She is also on Seroquel 12.5 mg b.i.d. p.o. p.r.n. The patient is also on Zoloft 50 mg daily. LABORATORY DATA: The patient's Depakote level was 47. ASSESSMENT: 1. Major neurocognitive disorder, mild to moderate. 2. Major depressive disorder, recurrent, without psychotic features. 3. Generalized anxiety disorder. PLAN: To continue with the treatment. DEAN FREY MD DR: HELDER/carey JOB#: [id number] / [id number]
[2018-11-27 05:54] VITALS: BP 137/82
[2018-11-27] MEDS: PRAMIPEXOLE 0.5 MG TABLET. PO SCH (08:43)
[2018-11-27] MEDS: DIVALPROEX 125 MG CAP.SPRINK PO SCH (08:43)
[2018-11-27] MEDS: SERTRALINE 50 MG TABLET. PO SCH (08:44)
[2018-11-27] MEDS: CALCIUM CARB/VIT D3 500/200 TABLET PO SCH ×2 (08:44→14:58)
[2018-11-27] MEDS: PRIMIDONE 250 MG TABLET PO SCH (08:44)
[2018-11-27] MEDS: QUEtiapine 25 MG TABLET. PO SCH (08:44)
--- NOTE | 2018-11-27 12:28 | RAD ---
Examination: PORTABLE CHEST 1V History: Wheezing and cough Comparison/Correlation: None Findings: Upright frontal view the chest was obtained. Positioning of the patient's head limits evaluation of the lung apices. Heart size is within upper limits of normal. No infiltrate or pleural effusion. No definite pneumothorax but evaluation is limited. Levoconvex scoliosis of the mid lumbar spine is present. Right upper quadrant surgical clips appear to be present. Impression: No infiltrate. Electronically signed by: Roque Live MD (11/27/2018 12:25 PM) [facility]
[2018-11-27 15:20] LABS: BASO % 0 % (0-3); EOS # 0.1 x10^3/uL (0.0-0.7); EOS % 1 % (0-3); HEMATOCRIT 46.1 % (36.0-47.0); HEMOGLOBIN 14.9 g/dL (12.0-15.5); LYMPH # 1.8 x10^3/uL (1.0-4.8); LYMPH % 15 % (24-48); MEAN CORPUSCULAR HEMOGLOBIN 32 pg (25-35); MEAN CORPUSCULAR HGB CONC 32 g/dL (31-37); MEAN CORPUSCULAR VOLUME 99 fL (79-100); MONO # 1.2 x10^3/uL (0.0-1.1); MONO % 10 % (0-9); NEUT # 9.1 x10^3uL (1.8-7.7); NEUT % 75 % (31-73); PLATELET COUNT 217 x10^3/uL (140-400); RED BLOOD COUNT 4.66 x10^6/uL (3.50-5.40); RED CELL DISTRIBUTION WIDTH 13.5 % (11.5-14.5); WHITE BLOOD COUNT 12.2 x10^3/uL (4.0-11.0)
[2018-11-27 15:29] LABS: ALBUMIN/GLOBULIN RATIO 0.6 (1.0-1.7); CALCIUM 9.3 mg/dL (8.5-10.1); CREATININE 0.7 mg/dL (0.6-1.0); GFR 81.1; POTASSIUM 3.9 mmol/L (3.5-5.1); TOTAL BILIRUBIN 0.2 mg/dL (0.2-1.0); TOTAL PROTEIN 8.1 g/dL (6.4-8.2)
[2018-11-27 16:07] VITALS: BP 141/80
[2018-11-27] MEDS ORDERED: IV DEXTROSE 5% 1,000 ML IV SCH (17:00)
[2018-11-27 18:08] LABS: BILIRUBIN,URINE NEG (NEG); CLARITY,URINE CLEAR; COLOR,URINE AMBER; GLUCOSE,URINE NEG (NEG)
[2018-11-27 18:09] LABS: BACTERIA,URINE 0 /HPF (0-FEW); NITRITE,URINE NEG (NEG); RBC,URINE 0 /HPF (0-2); UROBILINOGEN,URINE 0.2 mg/dL (0.2 mg/dL); WBC,URINE 0 /HPF (0-4)
--- NOTE | 2018-11-28 08:22 | PN ---
DATE: 11/27/2018 SUBJECTIVE: The patient was seen today, met with the staff, chart reviewed. Staff reports decreased agitation, gets confused, not able to hold a reasonable conversation, continues to show fluctuating mood and also impulsive behaviors. OBSERVATION: VITAL SIGNS: Temperature 98.5, blood pressure 137/82, pulse 72, respiration 18, O2 sat 90%. Slept about 6-1/2 hours last night. CURRENT MEDICATIONS: The patient's current medications include Depakote 750 mg b.i.d. p.o., Seroquel 25 mg daily and 25 mg at night p.o. She is also on Seroquel 12.5 mg b.i.d. p.o. p.r.n. The patient is also on Zoloft 50 mg daily p.o. The patient's Depakote level is around 47. ASSESSMENT: 1. Major neurocognitive disorder, mild to moderate. 2. Major depressive disorder, recurrent, without psychotic features. 3. Generalized anxiety disorder. PLAN: To continue with the treatment. DEAN FREY MD DR: HELDER/carey JOB#: [id number] / [id number]
[2018-11-28] MEDS ORDERED: DOCUSATE SODIUM 100 MG CAPSULE PO SCH (09:00)
--- NOTE | 2018-11-28 23:33 | DS ---
DATE OF DISCHARGE: 11/27/2018 FINAL DIAGNOSES: AXIS I: Major depressive disorder, recurrent, without psychotic features. AXIS II: Mild cognitive disorder. AXIS III: Generalized anxiety disorder, Parkinson's disease, hypernatremia. REASON FOR ADMISSION: This 78-year-old female was admitted to the [facility] from [facility] Room because of increased depression, refusing medications and cares and also increased agitation and also physical towards the nurse, constantly angry, episodes of confusion. HISTORY OF PRESENT ILLNESS: The patient has been a resident at [facility] because of her problems with depression, agitation and also confusion. The patient is not able to follow through directions, unmanageable. The patient also failed outpatient psychiatric interventions. The patient was considered dangerous to others and herself because of her mental state. The patient is having memory problems, most likely from Parkinson's and also to rule out Lewy body dementia. The patient is also exhibiting mood swings, periods of depression. The patient did not express any suicidal or homicidal thoughts. The patient has no history of alcohol or drug abuse. HOSPITAL COURSE: The patient had a physical exam, routine lab work including CBC, chem profile, urine analysis. The patient's chemistry showed sodium was 154 on 11/27/2018. Apparently, it has gradually increased since 11/24/2018. Her sodium level was 143 on 11/17/2018. The patient's BUN was 26, glucose 117. The patient's liver enzymes slightly elevated, AST was 44. The patient's hemoglobin A1c was 5.7 and also hyperlipidemia. The patient's medications included Depakote 750 mg b.i.d., Zoloft 75 mg daily, primidone 250 mg b.i.d. p.o., Mirapex 1 mg b.i.d., Seroquel 25 mg daily. She was also on olanzapine p.r.n. The patient did participate in all the activities except for periods of confusion and agitation. Her vital signs stayed stable. The patient did not have any falls during her stay here. The patient was seen by Dr. Tapia because of the hypernatremia and she was transferred to medical floor. AFTERCARE PLAN: The patient at the time of discharge is medically stable except for her increased sodium level. The patient continuing to have problems with memory, confusion, agitation. DEAN FREY MD DR: Eloise JOB#: [id number] / [id number]
[2018-12-02] MEDS ORDERED: APIX5TAB5 PO (12:49)
== END 2018-11-27 19:00 | disposition short-term general hospital (02) | DRG 885 ==
LOC: GEROPSY 00:30
PROVIDERS: ADMIT Psychiatry & Neurology Psychiatry; ATTEND Psychiatry & Neurology Psychiatry
DX: F33.2 Major depressive disorder, recurrent severe without psychotic features (principal); E43 Unspecified severe protein-calorie malnutrition; E87.0 Hyperosmolality and hypernatremia; F02.81 Dementia in other diseases classified elsewhere, unspecified severity, with behavioral disturbance; F01.51 Vascular dementia, unspecified severity, with behavioral disturbance; F41.9 Anxiety disorder, unspecified; E55.9 Vitamin D deficiency, unspecified; G20 Parkinson's disease; F41.1 Generalized anxiety disorder; G30.9 Alzheimer's disease, unspecified; E78.5 Hyperlipidemia, unspecified; H10.9 Unspecified conjunctivitis; M21.619 Bunion of unspecified foot; Z79.899 Other long term (current) drug therapy; Z88.6 Allergy status to analgesic agent; Z91.19 Patient's noncompliance with other medical treatment and regimen; Z68.30 Body mass index [BMI] 30.0-30.9, adult; Z88.8 Allergy status to other drugs, medicaments and biological substances; Z91.83 Wandering in diseases classified elsewhere
CPT/HCPCS: 36415; 71045; 80053; 80061; 80164; 81001; 82306; 82550; 83036; 83540; 83550; 83735; 85025; 86592; 90471; 90686; 93005; J3490; 97110; 97530; 97535

== ENCOUNTER 2018-11-27 19:09 | Inpatient (IN) | payer MEDICARE, OTHER ==
[~2018-11-27] VITALS: Ht 142.2 cm; Wt 61.0 kg
[~2018-11-27 19:09] MED LIST: ACET325T9 PO; DIVA500T17 PO; PRAM0.255 PO; PRIM250T28 PO; QUET25TA5 PO
[2018-11-27 20:31] VITALS: BP 150/80
[2018-11-27] MEDS: IV DEXTROSE 5% 1,000 ML IV SCH (22:00)
[2018-11-28] VITALS (7 sets, daily range): BP systolic 106–151; BP diastolic 61–85
[2018-11-28] MEDS: IV DEXTROSE 5% 1,000 ML IV SCH (07:55)
[2018-11-28 15:51] LABS: CALCIUM 7.9 mg/dL (8.5-10.1); CREATININE 0.5 mg/dL (0.6-1.0); GFR 119.6; POTASSIUM 3.4 mmol/L (3.5-5.1)
[2018-11-28 15:52] LABS: HEMATOCRIT 40.1 % (36.0-47.0); HEMOGLOBIN 13.1 g/dL (12.0-15.5); RED BLOOD COUNT 4.05 x10^6/uL (3.50-5.40); RED CELL DISTRIBUTION WIDTH 13.5 % (11.5-14.5); WHITE BLOOD COUNT 10.7 x10^3/uL (4.0-11.0)
--- NOTE | 2018-11-28 17:42 | EKG ---
[address] [address] Test Date: 2018-11-28 Test Time: 17:33:38 Pat Name: PAM AGUILERA Department: Room: 123 A Gender: F Contact Center Analyst: : 1940 Requested By: JF OLEA Order Number: [id number] Reading MD: Measurements Intervals [place] Rate: 73 P: NM: QRS: 72 QRSD: 78 T: 59 QT: 336 QTc: 373 Interpretive Statements IRREGULAR RHYTHM, NO P-WAVE FOUND OTHERWISE NORMAL ECG RI6.02 Compared to ECG 11/15/2018 15:42:28 Sinus rhythm no longer present Possible ischemia no longer present
--- NOTE | 2018-11-28 17:52 | HP ---
ADMIT DATE: 11/27/2018 HISTORY OF PRESENT ILLNESS: The patient is a 78-year-old female patient who was transferred from [facility] yesterday on account of being extremely lethargic yesterday due to metabolic encephalopathy. Her lab work yesterday showed her serum sodium has been steadily rising and yesterday was up to 154. Her BUN also has been steadily rising from 15-26 and therefore, a decision was made to transfer her down and was started on D5W as she has clearly marked water deficit and prerenal azotemia. Her white cell count was slightly elevated also, but she has no fever and no obvious signs of infection. Her urinalysis was essentially unremarkable and her treponema pallidum antibodies were nonreactive. PAST MEDICAL HISTORY: Significant for Parkinson's disease, short-term memory deficit. PAST SURGICAL HISTORY: Significant for recent bunion surgery. CODE STATUS: Full code. ALLERGIES: She is allergic to ASPIRIN. DIET: Regular diet. MEDICATIONS: She is currently on following medications: She is on Tylenol 650 mg every 6 hours, Mysoline 250 mg p.o. b.i.d., divalproex sodium 500 mg twice a day, Seroquel 25 mg daily and Mirapex 1 mg p.o. b.i.d. FAMILY HISTORY: Noncontributory. 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 She lives at home with her . She does not drink alcohol or use any recreational drugs. REVIEW OF SYSTEMS: Unobtainable as the patient was extremely lethargic. PHYSICAL EXAMINATION: GENERAL: On examining her, she looked well and was clearly in no apparent respiratory distress. No pallor, jaundice, cyanosis or thyromegaly. No jugular venous distention. No lower limb edema. VITAL SIGNS: Her heart rate was 81, blood pressure was 141/80, temperature was 97.6, respiratory rate was 20, and oxygen saturation was 96% on room air. HEAD, EYES, EARS, NOSE AND THROAT: Showed normocephalic, atraumatic. NECK: Supple. HEART: Showed normal first and second heart sounds. No gallop or murmur. CHEST: Clear to auscultation. No crepitation or rhonchi. ABDOMEN: Distended, soft, nontender. NEUROLOGIC: She was very lethargic, but arousable. All cranial nerves intact. She moves upper extremities to much good extent than lower extremities. I actually removed all her sutures from the left foot yesterday. She does have a deep tissue injury on her left heel. LABORATORY DATA: Yesterday showed a white cell count 12,200, hemoglobin 14.9, hematocrit 46, MCV 99 and platelet count 217,000 with normal manual differential. Her chemistry showed a serum sodium 154, potassium 3.9, chloride 112, bicarbonate 33, anion gap of 9, BUN 26, creatinine 0.7, estimated GFR was 81 mL per minute. Her glucose 117, calcium was 9.3. Total bilirubin, AST, ALT, alkaline phosphatase were normal. Total protein was 818.1, albumin was 3. Her CK was only 41. IMPRESSION: In summary, this is a 78-year-old female patient who was transferred from [facility] with altered mental status secondary to hypernatremia with a serum sodium 154 and prerenal azotemia. Other medical problems include Parkinson's disease and the short term memory deficit. She was started on D5W at 100 mL per hour. We will monitor her lab work closely and adjust her medication and electrolytes as needed. JF OLEA MD DR: KAYLEEN/carey JOB#: [id number] / [id number]
[2018-11-28] MEDS: POTASSIUM CL 20MEQ D5-0.9%NACL 1,000 ML IV SCH (18:36)
[2018-11-28] MEDS ORDERED: IOHEXOL 350 MG/ML 100 ML VIAL. IV ONE (21:00)
--- NOTE | 2018-11-28 23:09 | RAD ---
CTA Chest with contrast: Clinical History: Elevated d-dimer Shortness of breath. Axial helical images of the chest were obtained after the administration of 90 cc of IV Omni 350 and timed appropriately for a pulmonary arterial study. Conventional axial reconstruction was performed in addition to coronal, sagittal and bilateral oblique MIP (maximum intensity projection). This study was ordered to detect possible pulmonary embolism. There is thrombus in the distal right main pulmonary artery is interdigitating into most of the segmental and subsegmental pulmonary arteries. There is thrombus and multiple left-sided segmental and subsegmental pulmonary arteries. There is no saddle embolism. There are mild pleural effusions right worse than left. There is patchy opacities in the right lung base and there is a peripheral groundglass opacity in the right upper lobe laterally. There is no mediastinal or hilar lymphadenopathy. The thoracic aorta appears normal. Impression: 1. Bilateral pulmonary emboli with moderate clot burden. 2. Mild pleural effusions with adjacent infiltrates. Small pulmonary infarcts are possible. PQRS Compliance Statement: One or more of the following individualized dose reduction techniques were utilized for this examination: 1. Automated exposure control 2. Adjustment of the mA and/or kV according to patient size 3. Use of iterative reconstruction technique Electronically signed by: Clifton Fritz III, MD (11/28/2018 11:06 PM) [facility]
[2018-11-29] MEDS: APIXABAN 5 MG TABLET. PO SCH ×3 (00:19→20:41)
[2018-11-29 05:30] VITALS: BP 98/64
[2018-11-29] MEDS: POTASSIUM CL 20MEQ D5-0.9%NACL 1,000 ML IV SCH (05:33)
--- NOTE | 2018-11-29 06:14 | PN ---
DATE: 11/28/2018 SUBJECTIVE: The patient is a 78-year-old female patient who was transferred yesterday from [facility] on account of altered mental status. The patient was extremely lethargic however and her lab work showed that she has extremely hypernatremia with a serum sodium of 154. She was also dehydrated, and therefore, she was started on D5W and she did actually very well. When I saw her this afternoon, she was definitely more awake, alert, responding appropriately. She denied any complaint. PHYSICAL EXAMINATION: GENERAL: When I examined her this afternoon, she looked well and was clearly in no apparent respiratory distress. No pallor, jaundice, cyanosis or thyromegaly. NECK: No jugular venous distention. No limb edema. VITAL SIGNS: Her heart rate was 62, blood pressure was 136/72, temperature was 98.2, respiratory rate was 20, and oxygen saturation was 96%. HEAD, EYES, EARS, NOSE AND THROAT: Showed normocephalic, atraumatic. NECK: Supple. HEART: Showed normal first and second heart sounds. No gallop, rub or murmur. CHEST: Clear to auscultation. No crepitation or rhonchi. ABDOMEN: Distended, soft, nontender. No guarding or rigidity. No organomegaly. All hernial orifice intact. Bowel sounds normal. NEUROLOGIC: She is definitely more awake, alert, responding appropriately. All her cranial nerves are intact. She moves upper extremities without difficulty. Her left lower extremity is in a splint for a recent bunionectomy. We removed her sutures yesterday and her wound seems to be healing nicely. She does have deep tissue injury on her left heel. Her intake over the last 24 hours and output are incompletely recorded. LABORATORY DATA: Her lab work this morning showed a serum sodium 150, potassium 3.4, chloride 113, bicarbonate 32, anion gap of 5, BUN 12, creatinine 0.5, estimated GFR was 119 mL per minute. Her glucose was 140, calcium was 7.9. Her white cell count was 10,700, hemoglobin 13, hematocrit 40, MCV 99 and platelet count of 178,000. ASSESSMENT: 1. Altered mental status, resolved. 2. Hyponatremia, improving. Her serum sodium came down from 154-150. 3. Parkinson's disease. 4. Prerenal azotemia. JF OLEA MD DR: Luna JOB#: [id number] / [id number]
[2018-11-29 06:37] LABS: CALCIUM 7.5 mg/dL (8.5-10.1); CREATININE 0.5 mg/dL (0.6-1.0); GFR 119.6; POTASSIUM 3.6 mmol/L (3.5-5.1)
[2018-11-29] MEDS ORDERED: LACTULOSE 20 GM/30 ML SOLUTION. PO ONE ×2 (10:00→13:00)
[2018-11-29 10:34] VITALS: BP 127/72
[2018-11-29] MEDS: POTASSIUM CL 20MEQ IN D5W 1,000 ML IV SCH ×2 (13:58→23:50)
[2018-11-29 15:33] VITALS: BP 134/78
[2018-11-29 19:32] VITALS: BP 123/75
[2018-11-29] MEDS: DIVALPROEX ER 500 MG TAB.ER.24H PO SCH (20:41)
[2018-11-29] MEDS: PRAMIPEXOLE 0.5 MG TABLET. PO SCH (20:41)
[2018-11-29] MEDS: PRIMIDONE 250 MG TABLET PO SCH (20:42)
[2018-11-29 22:23] VITALS: BP 129/77
--- NOTE | 2018-11-30 | PN ---
DATE: 11/29/2018 SUBJECTIVE: The patient is resting, slightly propped up in bed, eating her lunch; although, the nursing staff stated that her intake is extremely poor. She is on thickened liquid and she does not really like that. She is also on a pureed diet. Yesterday, she did complain of chest pain and the D-dimer was high and therefore her D-dimer was 9.8 and therefore we arranged for her to have a CT angio of the chest and this showed that she has bilateral pulmonary emboli with moderate clot burden, mild pleural effusion with adjacent infiltrate, small pulmonary infarct possible. PHYSICAL EXAMINATION: GENERAL: When I saw her this afternoon, she was sitting comfortably in bed, in no apparent respiratory distress, slightly pale, no jaundice, cyanosis, or thyromegaly. No jugular venous distension. No lower limb edema. VITAL SIGNS: Her heart rate was 65, blood pressure was 127/72, temperature was 98, respiratory rate 20, and oxygen saturation was 96%. HEAD, EYES, EARS, NOSE AND THROAT: Showed normocephalic, atraumatic. NECK: Supple. HEART: Showed normal first and second heart sounds. No gallop or murmur. CHEST: Clear to auscultation. No crepitation or rhonchi. ABDOMEN: Distended, soft, nontender. NEUROLOGIC: She is awake, alert, responding appropriately. All cranial nerves intact. She is mostly bed bound and chair bound. Her intake over the last 24 hours was 3780, output was 1350. LABORATORY DATA: Her lab work this morning showed her serum sodium continued to be high at 149, potassium 3.6, chloride 114, bicarbonate 29, anion gap of 6, BUN 4, creatinine 0.5, estimated GFR was 119 mL per minute. Her glucose 115, calcium was 7.5. Her ammonia was high at 94. ASSESSMENT: 1. Altered mental status, improving. 2. Hypernatremia. Serum sodium came down from 154 to 149. 3. Prerenal azotemia, improving. 4. Chest pain with CT angio of the chest showed bilateral pulmonary emboli for which we started her on Eliquis. She also had flapping tremor and did actually check her ammonia level and was high at 94, likely secondary to divalproex for which we started her on lactulose 30 mL 3 times a day. I have reconciled all her medication and we will monitor her labs closely including her basic metabolic profile as well as her ammonia level. JF OLEA MD DR: KAYLEEN/carey JOB#: [id number] / [id number]
[2018-11-30 05:18] VITALS: BP 125/85
[2018-11-30 06:41] LABS: CALCIUM 7.9 mg/dL (8.5-10.1); CREATININE 0.5 mg/dL (0.6-1.0); GFR 119.6; POTASSIUM 3.9 mmol/L (3.5-5.1)
[2018-11-30] MEDS: QUEtiapine 25 MG TABLET. PO SCH (09:02)
[2018-11-30] MEDS: APIXABAN 5 MG TABLET. PO SCH ×2 (09:02→21:36)
[2018-11-30] MEDS: DIVALPROEX ER 500 MG TAB.ER.24H PO SCH ×2 (09:02→09:40)
[2018-11-30] MEDS: PRIMIDONE 250 MG TABLET PO SCH ×2 (09:03→21:36)
[2018-11-30] MEDS: PRAMIPEXOLE 0.5 MG TABLET. PO SCH ×2 (09:03→21:35)
[2018-11-30] MEDS: ACETAMINOPHEN 325 MG TABLET PO PRN (09:42)
[2018-11-30] MEDS: POTASSIUM CL 20MEQ IN D5W 1,000 ML IV SCH (09:42)
[2018-11-30 10:53] VITALS: BP 105/68
[2018-11-30 14:46] VITALS: BP 98/64
[2018-11-30 19:30] VITALS: BP 115/66
[2018-11-30 20:15] VITALS: BP 115/66
[2018-11-30] MEDS: DIVALPROEX 125 MG CAP.SPRINK PO SCH (21:36)
[2018-11-30 23:13] VITALS: BP 119/72
--- NOTE | 2018-11-30 23:51 | PN ---
DATE: 11/30/2018 SUBJECTIVE: The patient is sitting slightly propped up in bed, in no apparent distress. She is definitely more awake, alert, complaining of pain in the left heel. However, she has no flapping tremor today. Her ammonia is down to 48. Sodium has improved from 154 down to 137. Her potassium has also improved to 3.9. PHYSICAL EXAMINATION: GENERAL: When I examined her, she looked pale, no jaundice, cyanosis, or thyromegaly. No jugular venous distension. No limb edema. VITAL SIGNS: Her heart rate was 56, blood pressure was 125/85, temperature was 98.2, respiratory rate 20, and oxygen saturation was 96% on 2 liters of oxygen. HEAD, EYES, EARS, NOSE AND THROAT: Showed normocephalic, atraumatic. NECK: Supple. HEART: Showed normal first and second heart sounds. No gallop, rub or murmur. CHEST: Clear to auscultation. No crepitation or rhonchi. ABDOMEN: Distended, soft, nontender. NEUROLOGIC: She is definitely more awake, alert, responding appropriately. All cranial nerves intact. She moves upper extremities to much good extent than lower extremities. She has deep tissue injury on her left heel. The surgical wound has healed nicely and the sutures were removed without any dehiscence. She has definitely no flapping tremor today. Her intake over the last 24 hours was 3782, output was 1350. LABORATORY DATA: Her lab work this morning showed a serum sodium 137, potassium 3.9, chloride 105, bicarbonate 28, anion gap of 4, BUN 3, creatinine 0.5, estimated GFR was 119 mL per minute. Her glucose was 110, calcium was 7.9. White cell count was 10,700, hemoglobin 13, hematocrit 40, MCV 99 and platelet count 278,000. ASSESSMENT: 1. Altered mental status, improving. 2. Hypernatremia. Serum sodium from 154 down to 137. 3. Prerenal azotemia, resolved. 4. Bilateral pulmonary emboli, for which she was started on Eliquis. 5. The patient has hepatic encephalopathy with flapping tremor and ammonia was high at 94, for which she was started on lactulose and her ammonia today is 48. Plan is to cut down her IV fluid to 50 mL per hour, change her Depakote to sprinkler and monitor her lab work. JF OLEA MD DR: Luna JOB#: [id number] / [id number]
[2018-12-01] MEDS: POTASSIUM CL 20MEQ IN D5W 1,000 ML IV SCH (00:01)
[2018-12-01 06:07] VITALS: BP 111/69
[2018-12-01 06:58] LABS: CALCIUM 7.9 mg/dL (8.5-10.1); CREATININE 0.5 mg/dL (0.6-1.0); GFR 119.6; POTASSIUM 4.2 mmol/L (3.5-5.1)
[2018-12-01] MEDS: APIXABAN 5 MG TABLET. PO SCH ×2 (08:36→21:32)
[2018-12-01] MEDS: PRAMIPEXOLE 0.5 MG TABLET. PO SCH ×2 (08:36→21:31)
[2018-12-01] MEDS: PRIMIDONE 250 MG TABLET PO SCH ×2 (08:36→21:32)
[2018-12-01] MEDS: DIVALPROEX 125 MG CAP.SPRINK PO SCH ×2 (08:36→21:31)
[2018-12-01] MEDS: QUEtiapine 25 MG TABLET. PO SCH (08:36)
[2018-12-01] MEDS ORDERED: LACTULOSE 20 GM/30 ML SOLUTION. PO PRN (10:45)
[2018-12-01 11:51] VITALS: BP 116/67
[2018-12-01] MEDS: LACTULOSE 20 GM/30 ML SOLUTION. PO SCH ×3 (12:54→21:32)
--- NOTE | 2018-12-01 13:15 | PN ---
DATE: SUBJECTIVE: The patient is resting slightly propped up in bed, no apparent distress. She is somewhat lethargic, but arousable. According to nursing staff, she was more awake this morning and engaged, called her and her sister. Her intake continued to be extremely poor. We cut down her IV fluid yesterday to 50 mL per hour and her sodium actually dropped down further to 128, and therefore, we will discontinue her IV fluid altogether. Her ammonia also creeping up to 62. PHYSICAL EXAMINATION: GENERAL: When I examined her, she was somewhat pale, but no jaundice, cyanosis or thyromegaly. No jugular venous distension. No lower limb edema. VITAL SIGNS: Her heart rate was 64, blood pressure was 111/66, temperature was 97.6, respiratory rate was 18 and oxygen saturation was 91%. HEAD, EYES, EARS, NOSE AND THROAT: Showed normocephalic, atraumatic. NECK: Supple. HEART: Showed normal first and second heart sounds. No gallop or murmur. CHEST: Clear to auscultation. No crepitation or rhonchi. ABDOMEN: Distended, soft, nontender. NEUROLOGIC: She is awake, alert, but somewhat lethargic. All her cranial nerves intact. She moves upper extremities to much good extent than lower extremities. Her intake over the last 24 hours was 1750, output was 1300. LABORATORY DATA: Most recent white cell count was 10,700, hemoglobin 13, hematocrit 40, MCV 99 and platelet count of 178,000. Her serum sodium was 128, potassium 4.2, chloride 99, bicarbonate 25, anion gap of 4, BUN 4, creatinine 0.5, estimated GFR was 119 mL per minute. Her glucose 170, calcium was 7.9. Ammonia was 62. ASSESSMENT: 1. Altered mental status, improving. 2. Hyponatremia, resolved. In fact, her sodium is low now at 128. 3. Prerenal azotemia, resolved. 4. Bilateral pulmonary emboli for which she was started on Eliquis. 5. The patient has hepatic encephalopathy with flapping tremors. Her ammonia was high at 94, dropped down to 48 yesterday and now today 62. PLAN: To discontinue IV fluid and I will repeat all her labs. I will check also her liver enzymes as well as PT, INR and increase her lactulose to 4 times a day. JF OLEA MD DR: Luna JOB#: [id number] / [id number]
[2018-12-01 15:54] VITALS: BP 119/72
[2018-12-01 17:35] VITALS: BP 119/72
[2018-12-01] MEDS: ACETAMINOPHEN 325 MG TABLET PO PRN (17:59)
[2018-12-01 19:20] VITALS: BP 113/64
[2018-12-01 22:48] VITALS: BP 53/64
[2018-12-02 05:38] VITALS: BP 115/55
[2018-12-02 06:54] LABS: ALBUMIN 2.1 g/dL (3.4-5.0); ALBUMIN/GLOBULIN RATIO 0.5 (1.0-1.7); CALCIUM 8.2 mg/dL (8.5-10.1); CREATININE 0.6 mg/dL (0.6-1.0); GFR 96.9; POTASSIUM 3.9 mmol/L (3.5-5.1); TOTAL BILIRUBIN 0.2 mg/dL (0.2-1.0); TOTAL PROTEIN 6.2 g/dL (6.4-8.2)
[2018-12-02 06:55] LABS: HEMATOCRIT 39.6 % (36.0-47.0); HEMOGLOBIN 13.5 g/dL (12.0-15.5); RED BLOOD COUNT 4.13 x10^6/uL (3.50-5.40); RED CELL DISTRIBUTION WIDTH 13.1 % (11.5-14.5); WHITE BLOOD COUNT 8.1 x10^3/uL (4.0-11.0)
[2018-12-02] MEDS: DIVALPROEX 125 MG CAP.SPRINK PO SCH ×2 (08:33→21:06)
[2018-12-02] MEDS: PRAMIPEXOLE 0.5 MG TABLET. PO SCH ×2 (08:34→21:07)
[2018-12-02] MEDS: PRIMIDONE 250 MG TABLET PO SCH ×2 (08:34→21:06)
[2018-12-02] MEDS: LACTULOSE 20 GM/30 ML SOLUTION. PO SCH ×3 (08:35→21:05)
[2018-12-02] MEDS: QUEtiapine 25 MG TABLET. PO SCH (08:35)
[2018-12-02] MEDS: APIXABAN 5 MG TABLET. PO SCH ×2 (09:00→21:06)
[2018-12-02 10:49] VITALS: BP 106/60
[2018-12-02] MEDS ORDERED: APIX5TAB5 PO (12:49)
--- NOTE | 2018-12-02 12:52 | DISCH ---
DISCHARGE ORDERS DISCHARGE DATE: Dec 02, 2018 FINAL DIAGNOSIS Altered mental status hypernatremia acute pulmonary emboli CONDITION AT DISCHARGE: Stable Code Status: Full SNF STAY <30 DAYS: Yes POST DISCHARGE ORDERS: ACTIVITY ORDERS: Resume previous activity WEIGHT BEARING STATUS: As tolerated DIET AFTER DISCHARGE: Regular TREATMENT/EQUIPMENT ORDERS: ADAPTIVE EQUIPMENT NEEDED: Wheelchair DISCHARGE MEDICATIONS: Home Meds Active Scripts Apixaban (Eliquis) 5 Mg Tab.ds.pk, 5 MG PO BID for PE for 30 Days, #60 PKG 10 Refills Prov:JF OLEA MD 12/02/18 Reported Medications Quetiapine Fumarate (SEROQUEL) 25 Mg Tablet, 25 MG PO DAILY for psychosis 11/12/18 Primidone (MYSOLINE) 250 Mg Tablet, 250 MG PO BID for convulsions 11/12/18 Pramipexole Di-Hcl (MIRAPEX) 0.25 Mg Tablet, 1 MG PO BID for Parkinson's 11/12/18 Divalproex Sodium (DIVALPROEX SODIUM ER) 500 Mg Tab.er.24h, 500 MG PO BID for tremors 11/12/18 Acetaminophen (TYLENOL) 325 Mg Tablet, 650 MG PO PRN Q6HRS PRN for PAIN / TEMP 11/12/18 Discontinued Reported Medications Quetiapine Fumarate (SEROQUEL) 25 Mg Tablet, 12.5 MG PO PRN BID PRN for ANXIETY / AGITATION 11/12/18 Quetiapine Fumarate (SEROQUEL) 25 Mg Tablet, 25 MG PO QHS for Anxiety/Agitation 11/12/18 JF OLEA MD Dec 02, 2018 12:52
--- NOTE | 2018-12-02 13:18 | DS ---
DATE OF DISCHARGE: 12/02/2018 DISCHARGE SUMMARY HOSPITAL COURSE: The patient is a 78-year-old female patient who was transferred from [facility] on account of altered mental status and metabolic encephalopathy. She was found to have marked hyponatremia. Serum sodium 154, prerenal azotemia. She was started on IV D5W and her sodium came down steadily from 154, down to 136. While in [facility] [place], she also developed chest pain. She did complain of chest pain and therefore we arranged for her to have chest CT angio, which showed that the patient has bilateral pulmonary emboli with moderate clot burden. She has mild pleural effusion, adjacent infiltrate, small pulmonary infarcts are possible for which she was started on apixaban 10 mg twice a day for 7 days and then to go down to 5 mg twice a day. The patient is more awake, alert, continues to have problems with dysphagia and poor intake as she is on a pureed diet with thickened liquid. However, she is hemodynamically stable and afebrile, her electrolytes and kidney function has normalized. She also had an episode of hyperammonemia, during which she has flapping tremors treated with lactulose and her ammonia came down likely due to her Depakote and a decision was discharged to a half-way facility to continue with all her current medications and to start the process of physical and occupational therapy. PHYSICAL EXAMINATION: GENERAL: When I examined her today, she looked somewhat pale, but no jaundice, cyanosis or thyromegaly. No jugular venous distention. No limb edema. VITAL SIGNS: Her heart rate was 76, blood pressure was 106/60, temperature was 98.7, respiratory rate was 18 and oxygen saturation was 96% on 2 liters of oxygen. HEAD, EYES, EARS, NOSE AND THROAT: Showed normocephalic, atraumatic. NECK: Supple. HEART: Showed normal first and second heart sounds. No gallop or murmur. CHEST: Clear to auscultation. No crepitation or rhonchi. ABDOMEN: Distended, soft, nontender. NEUROLOGIC: She is definitely more awake, alert, responding appropriately. All cranial nerves intact. She moves upper extremities without difficulty. She is mostly bedbound, chair bound. Her intake over the last 24 hours was 340, output was 1150. LABORATORY DATA: Her white cell count was 8100, hemoglobin 13.5, hematocrit 39.6, MCV 96, and platelet count of 173,000. Her serum sodium was 136, potassium 3.9, chloride 103, bicarbonate 27, anion gap of 6, BUN 7, creatinine 0.6, estimated GFR was 96 mL per minute. Her glucose was 89, calcium was 8.2. Total bilirubin, AST, ALT, alkaline phosphatase were normal. Total protein was 6.2, albumin was 2.1. Her prothrombin time was 11.6, INR 1.1. DISCHARGE MEDICATIONS: She was discharged to continue on apixaban 10 mg twice a day for a total of 1 week and then 5 mg twice a day for indefinitely, Tylenol 650 mg every 6 hours as needed, divalproex 500 mg twice a day, Mirapex 1 mg p.o. b.i.d. for Parkinson's disease, primidone for Mysoline 250 mg twice a day and quetiapine fumarate 25 mg once a day. FINAL DISCHARGE DIAGNOSES: 1. Altered mental status, improved. 2. Hyponatremia, resolved. In fact, her serum sodium today has normalized to 136 mEq per liter. 3. Prerenal azotemia, resolved. 4. Bilateral pulmonary emboli for which she is on Eliquis. 5. The patient has hepatic encephalopathy with flapping tremors secondary to elevated hyperammonemia, treated with divalproex. 6. Depression and mood disorder. JF OLEA MD DR: KAYLEEN/carey JOB#: [id number] / [id number]
[2018-12-02] MEDS: ACETAMINOPHEN 325 MG TABLET PO PRN (14:00)
[2018-12-02 15:06] VITALS: BP 122/67
[2018-12-02 19:50] VITALS: BP 126/76
[2018-12-03 06:27] VITALS: BP 122/77
[2018-12-03] MEDS: DIVALPROEX 125 MG CAP.SPRINK PO SCH (07:49)
[2018-12-03] MEDS: LACTULOSE 20 GM/30 ML SOLUTION. PO SCH (07:49)
[2018-12-03] MEDS: APIXABAN 5 MG TABLET. PO SCH (07:50)
[2018-12-03] MEDS: QUEtiapine 25 MG TABLET. PO SCH (07:50)
[2018-12-03] MEDS: PRAMIPEXOLE 0.5 MG TABLET. PO SCH (07:50)
[2018-12-03] MEDS: PRIMIDONE 250 MG TABLET PO SCH (07:50)
== END 2018-12-03 09:18 | DRG 175 ==
LOC: 1 SOUTH 19:09
PROVIDERS: ADMIT Internal Medicine; ATTEND Internal Medicine
DX: I26.99 Other pulmonary embolism without acute cor pulmonale (principal); G93.41 Metabolic encephalopathy; E87.1 Hypo-osmolality and hyponatremia; E72.20 Disorder of urea cycle metabolism, unspecified; J90 Pleural effusion, not elsewhere classified; E86.0 Dehydration; G20 Parkinson's disease; K72.90 Hepatic failure, unspecified without coma; F32.9 Major depressive disorder, single episode, unspecified; G25.2 Other specified forms of tremor; R13.10 Dysphagia, unspecified; Z79.01 Long term (current) use of anticoagulants; Z88.6 Allergy status to analgesic agent
CPT/HCPCS: 36415; 71275; 80048; 80053; 82140; 84484; 85027; 85379; 85610; 93005; J7042; Q9967; 92610